=== PATIENT | male | born 1955 | race Caucasian/White ===

== ENCOUNTER → 2024-02-29 13:14 | Outpatient (CLI) | payer BC, SELFPAY | PROVIDERS: PCP Nurse Practitioner Family; Referring Provider Internal Medicine Critical Care Medicine; Visit Provider Internal Medicine Critical Care Medicine | DX: J43.2 Centrilobular emphysema (principal); R06.09 Other forms of dyspnea; Z87.891 Personal history of nicotine dependence; Z86.16 Personal history of COVID-19; R06.2 Wheezing; R94.2 Abnormal results of pulmonary function studies; R06.02 Shortness of breath | CPT/HCPCS: 94060; 94726; 94729 ==

== ENCOUNTER → 2024-03-08 12:18 | Outpatient (CLI) | payer BC, SELFPAY ==
--- NOTE | 2024-03-08 12:20 | DI.RAD.S_ITS ---
PROCEDURE: XR CHEST 2V INDICATIONS: Shortness of breath, eval for lung disease TECHNIQUE: 2 views of the chest were acquired. COMPARISON: None. FINDINGS: Surgical changes and devices: None. Lungs and pleura: Bilateral COPD changes are present. There is prominent lucency within the left base. Lung markings are difficult to discern particularly laterally. Mediastinum: Mediastinal contours are normal. Heart size is normal. Bones and chest wall: No suspicious bony abnormalities. Soft tissues appear unremarkable. IMPRESSION: Prominent lower lobe lucency with poorly visualized lung markings particularly laterally. While this is suspected to represent a bolus secondary to COPD/emphysema, on the basis of this exam without priors, pneumothorax cannot be definitively excluded. Clinical correlation and follow-up decubitus or CT chest is recommended. Dictated by: Jeannie Acuna M.D. on 03/08/2024 at 15:35 Approved by: Jeannie Acuna M.D. on 03/08/2024 at 15:46
== END ==
PROVIDERS: PCP Nurse Practitioner Family; Referring Provider Internal Medicine Critical Care Medicine; Visit Provider Internal Medicine Critical Care Medicine
DX: R06.09 Other forms of dyspnea (principal)
CPT/HCPCS: 71046

== ENCOUNTER → 2024-03-20 10:33 | Outpatient (CLI) | payer BC, SELFPAY ==
--- NOTE | 2024-03-20 10:34 | DI.CT.S_ITS ---
PROCEDURE: CT CHEST WO CON INDICATIONS: Abnormal chest xray, evaluate for emphysema or mass TECHNIQUE: Noncontrast 5 mm thick sections acquired from the pulmonary apices to the posterior costophrenic angles. 1 mm lung window, 5 mm thick coronal and sagittal and 7 mm axial MIP reformats were then acquired. For radiation dose reduction, the following was used: automated exposure control, adjustment of mA and/or kV according to patient size. COMPARISON: [facility], , XR CHEST 2V, 03/08/2024, 12:18. FINDINGS: Image quality: Diagnostic. Lower Neck: No enlarged lymph nodes. Thyroid: No thyroid nodules which require sonographic follow up, per consensus guidelines. Axillae: No enlarged lymph nodes. Chest Wall: Unremarkable. Bones: Unremarkable. Lungs and Pleura: No pneumothorax or pleural effusions. 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 3 millimeter solid nodule, left lower lobe. Heart: Heart size is normal. No pericardial effusion. Three-vessel coronary artery calcifications. Thoracic Vessels: The aorta and pulmonary arteries demonstrate normal size. Mediastinum and Bere: No enlarged lymph nodes. Esophagus: No wall thickening. No hiatal hernia. Upper Abdomen: Visualized upper abdomen solid organs and bowel loops appear normal. 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 3 millimeter solid nodule in the left lower lobe. Consider 12 month follow-up per Fleischner society guidelines. Marked coronary artery calcifications for age. Correlate with risk factors and advise counseling. Dictated by: Paul Collins M.D. on 03/20/2024 at 10:48 Approved by: Paul Collins M.D. on 03/20/2024 at 11:11
== END ==
PROVIDERS: PCP Nurse Practitioner Family; Referring Provider Internal Medicine Critical Care Medicine; Visit Provider Internal Medicine Critical Care Medicine
DX: J43.9 Emphysema, unspecified (principal); R93.89 Abnormal findings on diagnostic imaging of other specified body structures; R91.1 Solitary pulmonary nodule; I25.10 Atherosclerotic heart disease of native coronary artery without angina pectoris
CPT/HCPCS: 71250

== ENCOUNTER → 2024-10-28 15:42 | Outpatient (CLI) | payer BC, SELFPAY ==
--- NOTE | 2024-10-28 15:43 | DI.US.S_ITS ---
PROCEDURE: US ART LOW EXT LT W/CAREY INDICATIONS: Left leg pain and claudication TECHNIQUE: Color and pulse Doppler interrogation was performed of the left lower extremity arterial systems, with image documentation. CAREY was additionally performed. COMPARISON: None. FINDINGS: Left lower extremity: Common femoral artery: 131 cm/sec, with triphasic flow. Deep femoral artery: 115 cm/sec, with triphasic flow. Proximal superficial femoral artery: 112 cm/sec, with triphasic flow. Mid superficial femoral artery: 103 cm/sec, with triphasic flow. Distal superficial femoral artery: 98 cm/sec, with triphasic flow. Popliteal artery: 69 cm/sec, with triphasic flow. Posterior tibial artery: 91 cm/sec, with biphasic flow. Anterior tibial artery/dorsalis pedis: 76 cm/sec, with biphasic flow. Turner-scale imaging description: Mild atherosclerotic disease. Left CAREY is normal at 1.0. IMPRESSION: Mild atherosclerotic plaque, without hemodynamically significant stenosis. Normal CAREY of 1.0. Dictated by: Paul Collins M.D. on 11/01/2024 at 16:35 Approved by: Paul Collins M.D. on 11/01/2024 at 16:36
== END ==
PROVIDERS: Referring Provider Internal Medicine Critical Care Medicine; Visit Provider Internal Medicine Critical Care Medicine
DX: I73.9 Peripheral vascular disease, unspecified (principal)
CPT/HCPCS: 93979